=== PATIENT | male | born 2005 | race Hispanic/Latino ===

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

== ENCOUNTER 2024-05-01 21:35 | Emergency (ER) | payer OTHER, SELFPAY | END 2024-05-01 22:21 | disposition home or self-care (01) | LOC: ERS 21:35 | DX: L03.114 Cellulitis of left upper limb (principal) | CPT/HCPCS: 99283 ==

== ENCOUNTER 2024-06-28 16:52 | Emergency (ER) | payer SELFPAY ==
[2024-06-28 17:44] LABS: #Basophils 0.03 10x3/uL (0.0-0.2); %Basophils 0.3 % (0.0-1.0); %Eosinophils 4.9 % (0.0-10.0); %Monocytes 5.1 % (0.0-4.0); %Neutrophils 53.4 % (31.0-61.0); Hematocrit 42.5 % (42.0-52.0); Hemoglobin 14.5 g/dL (14.0-18.0); Mean Corpuscular HGB CONC 34.1 g/dL (32.0-36.0); Mean Corpuscular Hemoglobin 29.4 pg (25.0-35.0); Mean Corpuscular Volume 86.2 fL (78.0-98.0); Mean Platelet Volume 11.4 fL (7.4-10.4); Platelet Count 204 10x3/uL (130-400); RBC Distribution Width 12.4 % (11.5-14.5); Red Blood Cell (RBC) Count 4.93 mill/uL (4.00-5.20)
[2024-06-28 17:55] LABS: ALT (SGPT) 39 U/L (8-55); AST (SGOT) 22 U/L (10-45); Albumin 3.8 g/dL (3.5-5.0); Alkaline Phosphatase 52 U/L (50-130); Anion Gap 11 mmol/L (10-20); BUN (Urea Nitrogen) 10 mg/dL (8.4-21.0); Bilirubin, Total 0.4 mg/dL (0.2-1.2); Calc. Creatinine Clearance 0 mL/min (70-130); Calcium 8.9 mg/dL (7.8-10.44); Carbon Dioxide 25 mmol/L (22-29); Chloride 107 mmol/L (98-107); Estimated GFR 127; Globulin 2.9 g/dL (2.4-3.5); Glucose 106 mg/dL (70-105); Potassium 3.8 mmol/L (3.5-5.1); Protein, Total 6.7 g/dL (6.0-8.3); Sodium 139 mmol/L (136-145)
[2024-06-28 17:58] LABS: Prothrombin Time 13.5 sec (12.0-14.7)
[2024-06-28 17:59] LABS: PTT 38.7 sec (22.9-36.1)
== END 2024-06-28 20:55 | disposition left against medical advice (07) ==
LOC: ERS 16:52
DX: Z53.21 Procedure and treatment not carried out due to patient leaving prior to being seen by health care provider (principal)
CPT/HCPCS: 36415; 70450; 80053; 85025; 85610; 85730; 93005

== ENCOUNTER 2024-10-31 12:03 | Emergency (ER) | payer SELFPAY ==
[2024-10-31 12:44] LABS: #Basophils 0.03 10x3/uL (0.0-0.2); %Basophils 0.3 % (0.0-1.0); %Eosinophils 0.9 % (0.0-10.0); %Lymphocytes 27.4 % (28.0-48.0); %Monocytes 10.9 % (0.0-4.0); %Neutrophils 60.3 % (31.0-61.0); Hematocrit 45.6 % (42.0-52.0); Hemoglobin 15.3 g/dL (14.0-18.0); Mean Corpuscular HGB CONC 33.6 g/dL (32.0-36.0); Mean Corpuscular Hemoglobin 28.5 pg (25.0-35.0); Mean Corpuscular Volume 85.1 fL (78.0-98.0); Mean Platelet Volume 10.6 fL (7.4-10.4); Platelet Count 171 10x3/uL (130-400); RBC Distribution Width 12.7 % (11.5-14.5); Red Blood Cell (RBC) Count 5.36 mill/uL (4.00-5.20)
[2024-10-31] MEDS ORDERED: Cephalexin 250 MG CAP ONE (12:44)
[2024-10-31 13:02] LABS: ALT (SGPT) 74 U/L (Less than 45); AST (SGOT) 40 U/L (11-34); Albumin 3.7 g/dL (3.1-4.5); Alkaline Phosphatase 56 U/L (50-130); Anion Gap 10 mmol/L (10-20); BUN (Urea Nitrogen) 12 mg/dL (8.4-21.0); Bilirubin, Total 0.6 mg/dL (0.3-1.2); Calc. Creatinine Clearance 0 mL/min (70-130); Calcium 9.1 mg/dL (7.8-10.44); Carbon Dioxide 26 mmol/L (22-29); Chloride 109 mmol/L (98-107); Estimated GFR 128; Globulin 3.5 g/dL (2.4-3.5); Glucose 104 mg/dL (70-105); Potassium 4.3 mmol/L (3.5-5.1); Protein, Total 7.2 g/dL (6.0-8.3); Sodium 141 mmol/L (136-145)
== END 2024-10-31 13:50 | disposition home or self-care (01) ==
LOC: ERS 12:03
DX: L03.115 Cellulitis of right lower limb (principal)
CPT/HCPCS: 80053; 83605; 85025; 99283

== ENCOUNTER 2024-11-05 07:26 | Emergency (ER) | payer SELFPAY ==
[2024-11-05] MEDS ORDERED: Sodium Chloride 0.9% 100 ML ONE (07:48)
[2024-11-05] MEDS ORDERED: Cefepime 2 GM VIAL ONE (07:48)
[2024-11-05] MEDS ORDERED: Acetaminophen 500 MG TAB ONE (08:12)
[2024-11-05 08:15] LABS: #Basophils Less than 0.03 10x3/uL (0.0-0.2); %Basophils 0.2 % (0.0-1.0); %Eosinophils 3.9 % (0.0-10.0); %Lymphocytes 24.1 % (28.0-48.0); %Monocytes 11.3 % (0.0-4.0); Hematocrit 41.4 % (42.0-52.0); Hemoglobin 14.1 g/dL (14.0-18.0); Mean Corpuscular HGB CONC 34.1 g/dL (32.0-36.0); Mean Corpuscular Hemoglobin 28.7 pg (25.0-35.0); Mean Corpuscular Volume 84.3 fL (78.0-98.0); Mean Platelet Volume 10.2 fL (7.4-10.4); Platelet Count 185 10x3/uL (130-400); RBC Distribution Width 12.5 % (11.5-14.5); Red Blood Cell (RBC) Count 4.91 mill/uL (4.00-5.20)
[2024-11-05 08:30] LABS: ALT (SGPT) 72 U/L (Less than 45); AST (SGOT) 46 U/L (11-34); Albumin 3.7 g/dL (3.1-4.5); Alkaline Phosphatase 55 U/L (50-130); Anion Gap 15 mmol/L (10-20); BUN (Urea Nitrogen) 13 mg/dL (8.4-21.0); Bilirubin, Total 0.6 mg/dL (0.3-1.2); Calc. Creatinine Clearance 0 mL/min (70-130); Calcium 8.8 mg/dL (7.8-10.44); Carbon Dioxide 23 mmol/L (22-29); Chloride 107 mmol/L (98-107); Estimated GFR 117; Globulin 3.7 g/dL (2.4-3.5); Glucose 107 mg/dL (70-105); Potassium 4.2 mmol/L (3.5-5.1); Protein, Total 7.4 g/dL (6.0-8.3); Sodium 141 mmol/L (136-145)
== END 2024-11-05 09:32 | disposition home or self-care (01) ==
LOC: ERS 07:26
DX: L03.115 Cellulitis of right lower limb (principal); J10.1 Influenza due to other identified influenza virus with other respiratory manifestations
CPT/HCPCS: 71045; 80053; 83605; 85025; 87040; 87428; 96365; J0692